=== PATIENT | male | born 1955 | race Caucasian/White ===

== ENCOUNTER → 2018-06-16 | Outpatient (CLI) | payer MEDICARE ==
--- NOTE | 2018-06-16 11:43 | Diagnostic Imaging Report ---
CLINICAL INDICATION: Patient with low back pain since January 2018. Patient states his left leg goes numb when he sits or lays down for a long time. EXAM: MRI of the lumbar spine performed without IV contrast. Sequences include sagittal T2, sagittal T1, sagittal T2 fat-sat, and axial T2. COMPARISON: None. FINDINGS: Lumbar spine has normal alignment with no acute fracture or dislocation. The lumbar vertebrae have normal T1 and T2 signal. Limited visualization of the distal thoracic spinal cord, conus medullaris, and cauda equina nerve roots are unremarkable. The conus medullaris tip is not seen on the axial T2 sequence, but the conus medullaris tip is not seen below the L1-L2 intervertebral level. There is no significant paraspinal soft tissue abnormality. L1-L2 and L2-L3: There is no significant central spinal canal or neural foramen narrowing. L3-L4: There is mild bilateral facet arthropathy. There is mild bilateral neural foramen narrowing. L4-L5: There is a small annular tear involving the left foraminal/extraforaminal aspect of the disc. There is a minimal-sized posterior disc bulge. There is mild bilateral facet arthropathy. There is minimal impression upon the thecal sac anteriorly. There is [id number] bilateral neural foramen narrowing. L5-S1: There is a minimal-sized posterior disc bulge with focal annular tear involving the right paracentral aspect of the disc. There is [id number]-ladamvcg bilateral facet arthropathy. There is mild bilateral neural foramen narrowing. IMPRESSION: 1: There is a small annular anterior involving the left foraminal/extraforaminal aspect of the L4-L5 disc. There is a minimal-sized posterior disc bulge at the L4-L5 level. There is wysd-ae-hohjxume bilateral L4-L5 neural foramen narrowing. 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 Dictated by: Dictated on workstation # [id number]
== END ==
LOC: RAD 10:02
PROVIDERS: ATTEND Internal Medicine
DX: M51.16 Intervertebral disc disorders with radiculopathy, lumbar region (principal); M99.73 Connective tissue and disc stenosis of intervertebral foramina of lumbar region; M47.22 Other spondylosis with radiculopathy, cervical region
CPT/HCPCS: 72148

== ENCOUNTER → 2021-03-07 | Outpatient (CLI) | payer MEDICARE, OTHER ==
--- NOTE | 2021-03-07 16:29 | Diagnostic Imaging Report ---
EXAMINATION: CT chest without contrast (lung screening). TECHNIQUE: Multiple contiguous axial images were obtained through the chest without the use of intravenous contrast according to lung cancer screening protocol. All CT scans use one or more of the following dose optimizing techniques: automated exposure control, MA and/or KvP adjustment based on patient size and exam type or iterative reconstruction. HISTORY: 42 pack year history of smoking. COMPARISON: None available. FINDINGS: There is no edema or pneumonia. No pleural effusion. No pneumothorax. No suspicious nodules. Lungs are moderately emphysematous. There is no axillary or supraclavicular lymphadenopathy. There is no mediastinal lymphadenopathy. Heart size is normal. There are severe coronary artery calcifications. No pericardial effusion. Ascending aorta is 4.3 cm in caliber. Limited views of the upper abdomen show pneumobilia. There are no suspicious osseous lesions. IMPRESSION: 1. No suspicious pulmonary nodules. 2. Ascending aortic aneurysm measuring 4.3 cm. LUNG-RADS CATEGORY: 1 MODIFIER: S Dictated by: Dictated on workstation # [id number]
== END ==
LOC: RAD 12:45
PROVIDERS: ATTEND Internal Medicine
DX: Z12.2 Encounter for screening for malignant neoplasm of respiratory organs (principal); I71.2 Thoracic aortic aneurysm, without rupture; Z87.891 Personal history of nicotine dependence
CPT/HCPCS: 71271